=== PATIENT | female | born 1955 | race Caucasian/White ===

== ENCOUNTER 2021-10-08 15:49 | Emergency (ER) | payer MEDICARE ==
[~2021-10-08] VITALS: Ht 160 cm; Wt 84.5 kg
--- NOTE | 2021-10-08 16:25 | PHYS DOC ---
Past Medical History Additional Past Medical Histor: CHRONIC DIZZINESS Past Surgical History: Cholecystectomy, Hysterectomy General Adult EDM: Chief Complaint: MECHANICAL FALL HPI: HPI: Patient is a 66-year-old female who presents emergency department concerning hitting the back of her head after fall at approximately 730 this morning. Patient denies loss of consciousness, denies head or neck pain. Patient reports a 2-year history of dizziness every day describing her dizziness as "I just feel off "denies room spinning, denies nausea, denies visual disturbances. Patient denies syncopal episodes or near syncopal episodes. Patient reports she was pulling her pants down to use the restroom when she stumbled and fell off to her left. Patient reports she struck her head on the floor, had acute pain at that time that has since resolved. Patient reports she is taken no pain medications or other medications other than her prescriptions at home for hypertension, thyroid problems, type 2 diabetes, and Parkinson's. Patient reports she has been closely following her primary care physician in [facility] Dr. Bassett who has been treating her with dizziness with "pills ", patient reports intermittent relief of dizziness when taking her dizziness medications. Patient does not recall what medications she takes at home, reports receiving her medications through "some mail service ". Patient denies chest pains, shortness of breath, recent fever or chills, denies homicidal suicidal ideations, denies increased urination, denies urinary pressure, denies urinary burning, denies vaginal discharge, denies other physical complaints or physical concerns. Review of Systems: Review of Systems: 14 body systems of review of systems have been reviewed. See HPI for pertinent positives and negative responses, otherwise all other systems are negative, nonpertinent or noncontributory. Constitutional: Negative except as outlined in HPI above. Skin: Negative except as outlined in HPI above. Eyes: Negative except as outlined in HPI above. HENT: Negative except as outlined in HPI above. Respiratory: Negative except as outlined in HPI above. Cardiovascular: Negative except as outlined in HPI above. GI: Negative except as outlined in HPI above. : Negative except as outlined in HPI above. Musculoskeletal: Negative except as outlined in HPI above. Integument: Negative except as outlined in HPI above. Neurologic: Negative except as outlined in HPI above. Endocrine: Negative except as outlined in HPI above. Lymphatic: Negative except as outlined in HPI above. Psychiatric: Negative except as outlined in HPI above. Heart Score: C/O Chest Pain: No Risk Factors: Risk Factors: DM, Current or recent (<one month) smoker, HTN, HLP, family history of CAD, obesity. Risk Scores: Score 0 - 3: 2.5% MACE over next 6 weeks - Discharge Home Score 4 - 6: 20.3% MACE over next 6 weeks - Admit for Clinical Observation Score 7 - 10: 72.7% MACE over next 6 weeks - Early Invasive Strategies Allergies: Allergies: Allergies Coded Allergies Type Severity Reaction Last Updated Verified Penicillins Allergy Unknown UNKNOWN 10/08/21 Yes Physical Exam: PE: Constitutional: Well developed, well nourished, no acute distress, non-toxic appearance. 56-year-old female in no apparent distress. HENT: Normocephalic, minor contusion to occipital area, skin is intact, pain elicited with palpation over contusion site, patient denies pain if not being palpated, no midline spinal tenderness, no malocclusion, no raccoon eyes, no jaramillo's sign, bilateral TMs intact and within normal limits. Eyes: Conjunctiva normal, no discharge. Satisfactory 6 cardinal eye movements. Neck: Normal range of motion, no stridor. No midline spinal tenderness, no meningismus signs Cardiovascular: No cyanosis appreciated, distal cap refill less than 2 seconds. Lungs & Thorax: Patient is in no respiratory distress, no audible adventitious lung sounds appreciated. Abdomen: Nontender, no abnormalities noted. Skin: Warm, dry, no erythema, no rash. Back: No tenderness, no deformities. Extremities: No tenderness, no cyanosis, no clubbing, ROM intact, no edema. Neurologic: Alert and oriented X 3, normal motor function, normal sensory function, no focal deficits noted. Psychologic: Affect normal, judgement normal, mood normal. Current Patient Data: Labs: Laboratory Tests Test 10/08/21 16:01 10/08/21 16:23 Glucose (Fingerstick) 248 mg/dL White Blood Count 5.2 x10^3/uL Red Blood Count 4.29 x10^6/uL Hemoglobin 13.4 g/dL Hematocrit 39.7 % Mean Corpuscular Volume 93 fL Mean Corpuscular Hemoglobin 31 pg Mean Corpuscular Hemoglobin Concent 34 g/dL Red Cell Distribution Width 14.6 % Platelet Count 212 x10^3/uL Neutrophils (%) (Auto) 60 % Lymphocytes (%) (Auto) 30 % Monocytes (%) (Auto) 6 % Eosinophils (%) (Auto) 3 % Basophils (%) (Auto) 1 % Neutrophils # (Auto) 3.1 x10^3/uL Lymphocytes # (Auto) 1.6 x10^3/uL Monocytes # (Auto) 0.3 x10^3/uL Eosinophils # (Auto) 0.2 x10^3/uL Basophils # (Auto) 0.0 x10^3/uL Sodium Level 140 mmol/L Potassium Level 4.1 mmol/L Chloride Level 102 mmol/L Carbon Dioxide Level 30 mmol/L Anion Gap 8 Blood Urea Nitrogen 15 mg/dL Creatinine 1.1 mg/dL Estimated GFR (Cockcroft-Gault) 49.5 BUN/Creatinine Ratio 14 Glucose Level 224 mg/dL Calcium Level 8.1 mg/dL Phosphorus Level 3.3 mg/dL Magnesium Level 1.7 mg/dL Total Bilirubin 0.2 mg/dL Aspartate Amino Transf (AST/SGOT) 14 U/L Alanine Aminotransferase (ALT/SGPT) 12 U/L Alkaline Phosphatase 95 U/L Total Protein 6.6 g/dL Albumin 3.5 g/dL Albumin/Globulin Ratio 1.1 Laboratory Tests Test 10/08/21 16:01 Glucose (Fingerstick) 248 mg/dL (70-99) H Vital Signs: Vital Signs Date Time Temp Pulse Resp B/P (MAP) Pulse Ox O2 Delivery O2 Flow Rate FiO2 10/08/21 15:56 97.9 80 16 179/99 (125) 96 Room Air 97.9 EKG: EKG: EKG performed at 1602 by ED nursing staff shows a heart rate of 75 bpm, MD interval 0.178, QT 0.49, no acute STEMI, no ACS, no acute ischemia appreciated, EKG concerning for atrial flutter versus sinus rhythm, reviewed EKG and bedside 5-lead monitoring with ED attending physician Dr. Hernadez, Dr. Hernadez agrees that bedside monitoring shows clearly a sinus rhythm without concerns of a flutter or other ectopy. Radiology/Procedures: Radiology/Procedures: REASON: Fall, struck back of head PROCEDURE: CT HEAD AND CERVICAL SPINE WO STUDY: CT head and cervical spine without contrast INDICATION: Fall. Trauma to the back of the head. COMPARISON: CT head 07/04/2019 TECHNIQUE: Axial CT imaging through the head and cervical spine without the use of intravenous contrast. Sagittal and coronal reformats were obtained. One or more of the following individualized dose reduction techniques were utilized for this examination: 1. Automated exposure control 2. Adjustment of the mA and/or kV according to patient size 3. Use of iterative reconstruction technique. FINDINGS: CT head: No acute intracranial hemorrhage. Jones-white matter differentiation is maintained. No mass effect, midline shift or hydrocephalus. Parenchymal volume loss and intracranial calcific atherosclerosis. White matter findings which are nonspecific but most frequently related to chronic microvascular ischemic change. There may be a small right sahu radiata senior vice president & general counsel infarct , image 17 series 2. Suspected mild posterior scalp contusion centered to the left of midline, image 23 series 2. No depressed calvarial fracture. CT cervical spine: No acute fracture or traumatic malalignment. Mild grade 1 anterolisthesis of C5 on C6. Degenerative remodeling at the atlantodental interface. The central canal appears to be patent. No soft tissue sequela of trauma seen throughout the neck. IMPRESSION: CT head: 1. Suspected mild posterior scalp contusion. No depressed calvarial fracture or acute intracranial hemorrhage. 2. Chronic/senescent observations described above. CT cervical spine: 1. No acute fracture or traumatic malalignment. 2. Degenerative changes are relatively mild without evidence for significant central canal stenosis. Electronically signed by: PERCY TAMEZ MD (10/08/2021 5:31 PM) [facility] Course & Med Decision Making: Course & Med Decision Making Pertinent Labs and Imaging studies reviewed. (See chart for details) 66-year-old female, vital signs reviewed, presents emerged from concerning a fall at home. Patient's physical examination consistent with occipital contusion, pain elicited with palpation, there was no midline spinal pain, patient has a 2-year history of dizziness, will order CT head and C-spine to rule out intracranial process, CBC, CMP, magnesium and phosphorus. Patient's EKG performed by ED nursing staff upon triage concerning for a flutter versus sinus rhythm, discussed this with ED attending physician Dr. Hernadez, patient's bedside 5-lead monitoring clearly shows normal sinus rhythm, Dr. Hernadez agrees. Patient denies a history of cardiac arrhythmias. Patient's labs unremarkable, EKG unremarkable, CT concerning for a small right sahu radiata senior vice president & general counsel infarct, otherwise consistent with occipital contusion. No other acute concerning findings. Called and discussed patient case and ED work-up along with CT results with neurology specialist Dr. French who recommended patient could be discharged home and follow-up in his office later this week. Upon reevaluation of the patient's condition, patient remains nontoxic in appearance, in no apparent distress, repeat blood pressure 157/76. All other vital signs within normal limits, discussed findings with patient discussed strict follow-up with primary care physician, discussed with patient will give information for area clinics and primary care providers in the event she cannot secure a timely appointment with her own primary care physician. Discussed with patient follow-up with neurology specialist Dr. French, will give contact information. Tylenol and/or Motrin for pain or discomfort at home. Patient continues to deny any aches or pains at this time. Patient gave verbal understanding of and is amenable to ED discharge planning. Discussed with the patient all findings and diagnostic testing as well as the need to follow-up with their primary care provider for further evaluation and treatment or return to the ED if any new or worsening symptoms. Strict return precautions were also discussed at length, the patient voiced understanding and agreement with the discharge planning. The patient was nontoxic in appearance, in no apparent distress, and hemodynamically stable at the time of disposition. Dragon Disclaimer: Dragnasir Disclaimer: This electronic medical record was generated, in whole or in part, using a voice recognition dictation system. Departure Departure Impression: Primary Impression: Fall Qualified Codes: W19.XXXA - Unspecified fall, initial encounter Additional Impression: Scalp contusion Qualified Codes: S00.03XA - Contusion of scalp, initial encounter Disposition: HOME / SELF CARE / HOMELESS Condition: GOOD Referrals: REBECCA CALDWELL MD Patient Instructions: Concussion and Brain Injury, Contusion, Fall Prevention and Home Safety Additional Instructions: You were seen today in the emergency department after a fall after losing balance at home today. You had bumped the back of your head. There is a small contusion to the back of your head, please use ice packs 30 minutes on and 30 minutes off for the next 48 to 72 hours to assist with decreased swelling and a speedy recovery along with decreased pain. You may use [id number] Tylenol and or Motrin for ongoing aches and pains. The CT scan of your head did not show any concerning findings that would warrant a immediate intervention by a neurology specialist or admission to the hospital however as we discussed, I did discuss your CT scan of your head and your symptoms of dizziness for the past 2 years, neurology specialist Dr. French requested that you be seen in his office sometime this week. I have provided his contact information to this document. Please make a timely appointment. You had also indicated you wish to change your primary care physician. I have attached a document of area health care providers and clinics, please review and choose a primary health provider soon. Return to the emergency department for worsening symptoms or other concerns. Thank you for visiting our Emergency Department. It was a pleasure taking care of you today in the emergency department and we appreciate you trusting us with your care. If any additional problems come up don't hesitate to return to visit us. Please follow up with your primary care provider so they can plan additional care if needed and know about the problem that you had. If symptoms worsen come back to the Emergency Department. Any concerning symptoms that start such as chest pain, shortness of air, weakness or numbness on one side of the body, running high fevers or any other concerning symptoms return to the ER. EMERGENCY DEPARTMENT GENERAL DISCHARGE INSTRUCTIONS Thank you for coming to [facility] Emergency Department (ED) today and trusting us with you care. We trust that you had a positive experience in our Emergency Department. If you wish to speak to the department management, you may call the Director at [phone]. YOUR FOLLOW UP INSTRUCTIONS ARE FOLLOWS: 1. Do you have a private Doctor? If you do not have a private doctor, please ask for a resource list of physicians or clinics that may be able to assist you with follow up care. 2. The Emergency Physicain has interpreted your x-rays. The X-Ray specialist will also review them. If there is a change in the findings, you will be notified in 48 hours when at all possible. 3. A lab test or culture has been done, your results will be reviewed and you will be notified if you need a change in treatment. ADDITIONAL INSTRUCTIONS AND INFORMATION: 1. Your care today has been supervised by a physician who is specially trained in emergency care. Many problems require more than one evaluation for a complete diagnosis and treatment. We recommend that you schedule your follow up appointment as recommended to ensure complete treatment of you illness or injury. If you are unable to obtain follow up care and continue to have a problem, or if your condition worsens, we recommend that you return to the ED. 2. We are not able to safely determine your condition over the phone nor are we able to give sound medical advice over the phone. For these safety reasons, if you call for medical advice we will ask you to come to the ED for further evaluation. 3. If you have any questions regarding these discharge instructions please call the ED at [phone]. SAFETY INFORMATION: In the interest of safety, wellness, and injury prevention; we encourage you to wear your sealbelt, if you smoke; quite smoking, and we encourage family to use a protective helmet for bicycling and other sporting events that present an increased risk for head injury. IF YOUR SYMPTOMS WORSEN OR NEW SYMPTOMS DEVELOP, OR YOU HAVE CONCERNS ABOUT YOUR CONDITION; OR IF YOUR CONDITION WORSENS WHILE YOU ARE WAITING FOR YOUR FOLLOW UP APPOINTMENT; EITHER CONTACT YOUR PRIMARY CARE DOCTOR, THE PHYSICIAN WHOSE NAME AND NUMBER YOU WERE GIVEN, OR RETURN TO THE ED IMMEDIATELY. QUINTIN SHEA APRN Oct 08, 2021 16:25
[2021-10-08 16:47] LABS: BASO % 1 % (0-3); EOS # 0.2 x10^3/uL (0.0-0.7); EOS % 3 % (0-3); HEMATOCRIT 39.7 % (36.0-47.0); HEMOGLOBIN 13.4 g/dL (12.0-15.5); LYMPH # 1.6 x10^3/uL (1.0-4.8); LYMPH % 30 % (24-48); MEAN CORPUSCULAR HEMOGLOBIN 31 pg (25-35); MEAN CORPUSCULAR HGB CONC 34 g/dL (31-37); MEAN CORPUSCULAR VOLUME 93 fL (79-100); MONO # 0.3 x10^3/uL (0.0-1.1); MONO % 6 % (0-9); NEUT # 3.1 x10^3/uL (1.8-7.7); NEUT % 60 % (31-73); PLATELET COUNT 212 x10^3/uL (140-400); RED BLOOD COUNT 4.29 x10^6/uL (3.50-5.40); RED CELL DISTRIBUTION WIDTH 14.6 % (11.5-14.5); WHITE BLOOD COUNT 5.2 x10^3/uL (4.0-11.0)
[2021-10-08 17:00] LABS: CALCIUM 8.1 mg/dL (8.5-10.1); CREATININE 1.1 mg/dL (0.6-1.0); GFR 49.5; POTASSIUM 4.1 mmol/L (3.5-5.1)
[2021-10-08 17:04] LABS: ALBUMIN 3.5 g/dL (3.4-5.0); ALBUMIN/GLOBULIN RATIO 1.1 (1.0-1.7); MAGNESIUM 1.7 mg/dL (1.8-2.4); PHOSPHORUS 3.3 mg/dL (2.6-4.7); TOTAL BILIRUBIN 0.2 mg/dL (0.2-1.0); TOTAL PROTEIN 6.6 g/dL (6.4-8.2)
--- NOTE | 2021-10-08 17:33 | RAD ---
STUDY: CT head and cervical spine without contrast INDICATION: Fall. Trauma to the back of the head. COMPARISON: CT head 07/04/2019 TECHNIQUE: Axial CT imaging through the head and cervical spine without the use of intravenous contra st. Sagittal and coronal reformats were obtained. One or more of the following individualized dose reduction techniques were utilized for this examinat ion: 1. Automated exposure control 2. Adjustment of the mA and/or kV according to patient size 3. Use of iterative reconstruction technique. FINDINGS: CT head: No acute intracranial hemorrhage. Jones-white matter differentiation is maintained. No mass effect, mi dline shift or hydrocephalus. Parenchymal volume loss and intracranial calcific atherosclerosis. White matter findings which are no nspecific but most frequently related to chronic microvascular ischemic change. There may be a small right sahu radiata employment training specialist infarct, image 17 series 2. Suspected mild posterior scalp contusion centered to the left of midline, image 23 series 2. No depre ssed calvarial fracture. CT cervical spine: No acute fracture or traumatic malalignment. Mild grade 1 anterolisthesis of C5 on C6. Degenerative remodeling at the atlantodental interface. The central canal appears to be patent. No soft tissue sequela of trauma seen throughout the neck. IMPRESSION: CT head: 1. Suspected mild posterior scalp contusion. No depressed calvarial fracture or acute intracranial h emorrhage. 2. Chronic/senescent observations described above. CT cervical spine: 1. No acute fracture or traumatic malalignment. 2. Degenerative changes are relatively mild without evidence for significant central canal stenosis. Electronically signed by: PERCY TAMEZ MD (10/08/2021 5:31 PM) [facility]
[2021-10-08 18:29] VITALS: BP 144/84
--- NOTE | 2021-10-12 02:13 | EKG ---
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
--- NOTE | 2021-11-02 15:54 | EKG ---
[facility] [address] [place] [address] Test Date: 2021-10-08 Test Time: 16:02:55 Pat Name: MARLYS GREY Department: Room: Gender: F Tow Picker: : [id number] Requested By: QUINTIN SHEA Order Number: [id number] Reading MD: Measurements Intervals [place] Rate: 75 P: 241 [place]: 178 QRS: -34 QRSD: 94 T: 99 QT: 382 QTc: 429 Interpretive Statements SINUS RHYTHM ABNORMAL LEFT AXIS DEVIATION Electronically Signed On 10-17-2021 11:57:26 STAVE SAW OPERATOR by Mc Davis
== END 2021-10-08 18:37 | disposition home or self-care (01) ==
LOC: ER 15:49
DX: S00.03XA Contusion of scalp, initial encounter (principal); W18.39XA Other fall on same level, initial encounter; Y93.89 Activity, other specified; Y92.89 Other specified places as the place of occurrence of the external cause; Y99.8 Other external cause status
CPT/HCPCS: 36415; 70450; 72125; 80053; 82962; 83735; 84100; 85025; 93005; 99284-25; 99285-25